=== PATIENT | female | born 1995 | race Caucasian/White ===

== ENCOUNTER 2023-11-12 13:10 | Emergency (ER) | payer OTHER, SELFPAY ==
--- NOTE | 2023-11-12 13:14 | ECG_ITS ---
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
[2023-11-12 13:16] VITALS: BP 151/112; PULSE 84; RESP 16; TEMP 36.6; O2SAT 99; BMI 46.6
--- NOTE | 2023-11-12 13:28 | ED_ITS ---
HPI - Burn/Smoke Inhalation General Chief complaint: Burn/Smoke Inhalation Stated complaint: ELECTRICUTED AT WORK Time Seen by Provider: 11/12/23 13:12 Source: patient Mode of arrival: walk-in History of Present Illness HPI Narrative: Patient is a 28-year-old female who presents to the emergency department after an electric shock to the right hand from an outlet at work. She states that she was using a metal sarah to try to unplug an outlet that was behind an object. She states the metal pried open the outlet. She sustained an electric shock to the right hand. She had no barber or mckeon. No fall to the ground or loss of consciousness. No chest pain, palpitations, shortness of breath. She has no focal medical complaints at this time. No concern for . Related Data Allergies Allergy/AdvReac Type Severity Reaction Status Date / Time amoxicillin [From Augmentin] Allergy Unknown Verified 11/12/23 13:21 clavulanic acid Allergy Unknown Verified 11/12/23 13:21 [From Augmentin] menthol [From Icy Hot] Allergy Unknown Verified 11/12/23 13:21 methyl salicylate Allergy Unknown Verified 11/12/23 13:21 [From Icy Hot] Review of Systems ROS Constitutional Denies: fever or chills Ears, nose, mouth, and throat Denies: throat pain Cardiovascular Denies: chest pain or palpitations Respiratory Denies: shortness of breath or cough Gastrointestinal Denies: nausea or vomiting Integumentary/Breast Denies: rash Exam Narrative Exam Narrative: Gen.: Awake, alert, in no distress Head: Normocephalic, atraumatic ENT: Moist mucous membranes Respiratory: No respiratory distress, lungs clear bilaterally Cardio: Regular rate and rhythm Extremities: Moves extremities equally, no injuries noted Psych: Normal mood and affect Neuro: No focal neuro deficit Skin: Warm, dry, intact; No barber or mckeon to the right arm or hand Constitutional Vital Signs, click to edit/add: Last Vital Signs Temp 98 F 11/12/23 13:16 Pulse 84 11/12/23 13:16 Resp 16 11/12/23 13:16 BP 151/112 H 11/12/23 13:16 Pulse Ox 99 11/12/23 13:16 Keegan-Lio/Rule Nines Burn ? Citation [email or web address] Course Vital Signs Vital signs: Vital Signs Temperature 98 F 11/12/23 13:16 Pulse Rate 84 11/12/23 13:16 Respiratory Rate 16 11/12/23 13:16 Blood Pressure 151/112 H 11/12/23 13:16 Pulse Oximetry 99 11/12/23 13:16 Temperature 98 F 11/12/23 13:16 Pulse Rate 84 11/12/23 13:16 Respiratory Rate 16 11/12/23 13:16 Blood Pressure 151/112 H 11/12/23 13:16 Pulse Oximetry 99 11/12/23 13:16 MDM - Burn/Smoke Inhalation MDM Narrative Medical decision making narrative: EKG performed to rule out dysrhythmia, patient with stable vital signs at discharge and no focal medical complaints. Follow-up occupational health, activity as tolerated with clearance for work. Return to the ER if symptoms change or worsen. Medical Records Attestation: I reviewed the patient's medical records. ECG Data Attestation: I personally reviewed and interpreted this ECG as follows: (Normal sinus rhythm at a rate of 79, no acute ST elevation or ectopy. EKG reviewed by attending physician) Discharge Plan Discharge Chief Complaint: Burn/Smoke Inhalation Clinical Impression: Electrocution Time of Disposition Decision: 13:30 Condition: Good Instructions: Return to Work Instructions (ED) Stand Alone Forms: Portal Instructions Referrals: [facility] [Outside] - 1 week
== END 2023-11-12 13:50 | disposition home or self-care (01) ==
PROVIDERS: Emergency Provider Emergency Medicine
DX: T75.4XXA Electrocution, initial encounter (principal); W86.8XXA Exposure to other electric current, initial encounter
CPT/HCPCS: 93005; 99283

== ENCOUNTER 2023-12-13 15:55 | Emergency (ER) | payer OTHER, SELFPAY ==
[2023-12-13 15:59] VITALS: BP 188/93; PULSE 65; RESP 18; TEMP 36.7; O2SAT 100; BMI 45.3
--- OUTSIDE RECORDS SUMMARY | 2023-12-13 16:02 | XMS_ITS | CCD ---
Author Name Unknown Address [address] [place] [address] [address] [place] [address] Organization [facility] Care Team Providers Care Development Editor Name Role Phone REQUEST, DR NONE LISTED Primary Care Unavailblake Zhang, DR REYES Admitting Unavailable JOSELYN Zhang, DR REYES Attending Unavailable JOSELYN Zhang, DR REYES Consulting Unavailable MIGUELINA ROJAS Consulting Unavailable LISSETTE ARNDT Consulting Unavailable Miller Mclean Attending Unavailable Miller Mclean Attending Unavailable Allergies Allergy Classification Reported Allergen(s) Allergy Type Date of Onset Reaction(s) Facility (2 sources) Amoxicillin / Clavulanate; Translations: [Augmentin] Drug Allergy 6 [facility] Repository (1 source) Icy Hot Drug allergy (disorder) 6 [facility] Repository (1 source) HYDROcodone-pota ssium guaiacolsulfonat e; Translations: [HYDROcodone-pot assium guaiacolsulfonat e] Propensity to adverse reactions (disorder) [facility] Repository (1 source) HYDROcodone PA Pediatric; Translations: [HYDROcodone PA Pediatric] Propensity to adverse reactions (disorder) [facility] Repository Problems Active Problems Problem Classification Problem Date Documented Da te Episodic/Chronic E Codes: Natural/environment (1 source) Other and unspecified overexertion or strenuous movements or postures, initial encounter; Translations: [OTH AND UNS OVREXRT/STRN MVMT/POS INT] Onset: 02-24-2023 Episodic Sprains and strains (1 source) Strain of muscle, fascia and tendon of lower back, initial encounter; Translations: [STRAIN MUSC FASC TENDON LW BACK INT] Onset: 02-24-2023 Episodic Substance-related disorders (1 source) Nicotine dependence, cigarettes, uncomplicated; Translations: [NICOTINE DEPEND CIGARETTES UNCOMP] Onset: 02-24-2023 Chronic Unclassified (2 sources) LOW BACK PAIN, UNSPECIFIED; Translations: [LOW BACK PAIN, UNSPECIFIED] Onset: 02-24-2023 Past or Other Problems Problem Classification Problem Date Documented Da te Episodic/Chronic Unclassified (1 source) LOW BACK PAIN, UNSPECIFIED; Translations: [LOW BACK PAIN, UNSPECIFIED] Onset: 02-20-2023 Results Test Name Value Interpretation Reference Range Facil ity XR LSPINE 2_3 VIEWSon 2022 XR LSPINE 2_3 VIEWS EXAM: XR LSPINE 2_3 VIEWS HISTORY: Low back pain COMPARISON: None. TECHNIQUE: 2 views FINDINGS: Maintenance of the normal lumbar lordosis.. Vertebral body heights and alignments exhibit no fracture or listhesis. Intervertebral disc space heights are unremarkable. Sacroiliac joints are normal IMPRESSION: Normal lumbar spine x-rays Electronically authenticated by: MIGUELINA ROJAS Date: 2023-02-20 22:35 Normal [facility] ER URINE PROFILEon 3 Bilirubin Ql (U) Negative Normal NEGATIVE [facility] Comment on above: Performed By: #### E RUR #### [facility] [address] [place] [address] Dr. Bruno Evans Clarity (U) CLEAR Normal CLEAR [facility] Comment on above: Performed By: #### E RUR #### [facility] [address] [place] [address] Dr. Bruno Evans Color (U) YELLOW Normal YELLOW [facility] Comment on above: Performed By: #### E RUR #### [facility] [address] [place] [address] Dr. Bruno POOL A micrscopic examination will be performed if indicated. Normal [facility] Comment on above: Performed By: #### E RUR #### [facility] [address] [place] [address] Dr. Bruno Evans Glucose Ql (U) Negative Normal NEGATIVE [facility] Comment on above: Performed By: #### E RUR #### [facility] [address] [place] [address] Dr. Bruno Evans Hemoglobin Ql (U) Negative Normal NEGATIVE [facility] Comment on above: Performed By: #### E RUR #### [facility] [address] [address] [address] Bruno Evans Ketones Ql (U) Negative Normal NEGATIVE [facility] Comment on above: Performed By: #### E RUR #### [facility] [address] [place] [address] Dr. Bruno Evans LEUKOCYTES Negative Normal NEGATIVE [facility] Comment on above: Performed By: #### E RUR #### [facility] [address] [place] [address] Dr. Bruno Evans Nitrite Ql (U) Negative Normal NEGATIVE [facility] Comment on above: Performed By: #### E RUR #### [facility] [address] [place] [address] Dr. Bruno Evans pH (U) 5.5 [pH] Normal 5-9 [facility] Comment on above: Performed By: #### E RUR #### [facility] [address] [place] [address] Dr. Bruno Evans SPEC GRAVITY >=1.030 Abnormal 1.005-<=1.025 [facility] Comment on above: Performed By: #### E RUR #### [facility] [address] [place] [address] Dr. Bruno Evans UA PROTEIN TRACE Normal NEGATIVE/ TRACE [facility] Comment on above: Performed By: #### E RUR #### [facility] [address] [place] [address] Dr. Bruno Evans UR MICRO IND NOT INDICATED Normal [facility] Comment on above: Performed By: #### E RUR #### [facility] [address] [place] [address] Dr. Bruno Evans Urobilinogen Qn (U) 2.0 {Arlet'U}/dL Abnormal 0.2 - 1. 0 [facility] Comment on above: Performed By: #### E RUR #### [facility] [address] [place] [address] Dr. Bruno Evans Encounters Encounter Date Encounter Type Care Provider Facility Start: 12-16-2023 ambulatory Miller Mclean Facility : [facility] Start: 11-26-2023 End: 11-27-2023 ambulatory Miller Mclean Facility:[facility] Shauna moreland Start: 02-20-2023 End: 02-21-[address] NONE LISTED REQUEST Facility: Payers Date Payer Category Payer Unknown [id number] 1995 Unknown [id number] 1995 Unknown [id number] 1957 Unknown [id number] Summary Purpose Family History No Family History Records FoundNo Family History Records Found Advance Directives No Advanced Directives Records FoundNo Advanced Directives Records Found Additional Source Comments INFORMATION SOURCE (unrecogn ized section and content) DATE CREATED AUTHOR 02/25/2023 [facility] DATE CREATED AUTHOR AUTHOR'S ORGANIZ ATION 12/10/2023 [facility] FOR RECORDS PERTAINING TO PATIENTS WHO ARE OR HAVE BEEN ENROLLED IN A CHEMICAL DEPENDENCY/SUBSTANCEABUSE PROGRAM, SOME INFORMATION MAY BE OMITTED. This clinical summary was aggregated from multiple sources. Caution should be exercised in using it in the provision of clinical care. This summary normalizes information from multiple sources, and as a consequence, information in this document may materially change the coding, format and clinical context of patient data. In addition, data may be omitted in some cases. CLINICAL DECISIONS SHOULD BE BASED ON THE PRIMARY CLINICAL RECORDS. [employer] [facility]. provides no warranty or guarantee of the accuracy or completeness of information in this document.
--- NOTE | 2023-12-13 16:10 | ED_ITS ---
HPI - Dental/Oral General Chief complaint: Dental/Oral Stated complaint: MOUTH PAIN Time Seen by Provider: 12/13/23 15:57 Source: patient Mode of arrival: walk-in Limitations: no limitations History of Present Illness HPI Narrative: Pt is a 28-year-old female. Dental pain 10/10 right lower rear molar. And radiates to the ear.Denies any nausea or vomiting. Patient states she is not allergic to penicillin. She has an appointment tomorrow for regular dental cleaning. Per Pt, Dentist has suggested the patient get a root canal, patient is hoping for extraction. She notes minimal swelling to the mandibular poncho on.Patient speaking in clear sentences appears nontoxic in no acute distress. Denies any discharge or drainage, tooth with evidence of prior dental caries and chronic fracture MD Complaint: Reports tooth pain Associated symptoms: gum swelling and ear pain Treatment prior to arrival: oral analgesic Related Data Home Medications Medication Instructions Recorded Confirmed ibuprofen 800 mg tablet 800 mg PO TID 12/13/23 12/13/23 Previous Rx's Medication Instructions Recorded ibuprofen 600 mg tablet 600 mg PO TID PRN pain #30 tabs 12/13/23 penicillin V potassium 500 mg 500 mg PO TID #30 tabs 12/13/23 tablet Allergies Allergy/AdvReac Type Severity Reaction Status Date / Time amoxicillin [From Augmentin] Allergy Unknown Verified 11/12/23 13:21 clavulanic acid Allergy Unknown Verified 11/12/23 13:21 [From Augmentin] menthol [From Icy Hot] Allergy Unknown Verified 11/12/23 13:21 methyl salicylate Allergy Unknown Verified 11/12/23 13:21 [From Icy Hot] Review of Systems ROS Constitutional Denies: fever or chills Eyes Denies: change in vision or blurry vision Ears, nose, mouth, and throat Denies: throat pain or neck pain Cardiovascular Denies: chest pain or palpitations Respiratory Denies: shortness of breath or cough Gastrointestinal Denies: abdominal pain or nausea Musculoskeletal Denies: back pain Integumentary/Breast Denies: rash or itching Neurological Denies: headache Psychiatric Denies: anxiety or mood swings Allergic/Immunologic Denies: hives PFSH PFSH Social History Smoking status: Current every day smoker Exam Narrative Exam Narrative: Nurses notes reviewed and patient is noted to be non-hypoxic. General: The patient is comfortable, alert and oriented x3, well appearing, non toxic in no apparent distress. Head: Atraumatic and normocephalic. Eyes: Normal conjunctiva, no exudates. ENT: ear Normal to inspection, no auricle or Tragal tenderness.TM unremarkable,The oropharynx is normal. No pharyngeal erythema, uvular edema, tonsillar exudates, asymmetry or trismus. Uvula is midline. Mouth is normal to inspection With the exception of a pain on percussion of Right lower rear molar. and evidence of dental caries,Chronic fracture. . There is no evidence of facial asymmetry or abscess formation. Floor of the mouth is soft. mild tenderness in the submandibular space but no mass. No tongue elevation or deviation. The patient has no evidence of periapical abscess, gingivitis, ANUG or other acute pathology. Airway is patent. Neck: The neck demonstrates normal range of motion. No meningeals signs are present. No stridor. No masses or lymphandenopathy noted. Respiratory: No acute distress, lungs are clear to auscultation, no wheezing, rhonchi, or rales noted. No stridor or retractions are noted. Cardiovascular: Regular rate and rhythm Skin: The skin exam shows no evidence of rashes Neuro: Alert and oriented x4, normal speech Lymphatic: No cervical lymphadenopathy Constitutional Vital Signs, click to edit/add: Last Vital Signs Temp 98.1 F 12/13/23 15:59 Pulse 65 12/13/23 15:59 Resp 18 12/13/23 15:59 BP 188/93 H 12/13/23 15:59 Pulse Ox 100 12/13/23 15:59 O2 Del Method Room Air 12/13/23 15:59 Course Vital Signs Vital signs: Vital Signs Temperature 98.1 F 12/13/23 15:59 Pulse Rate 65 12/13/23 15:59 Respiratory Rate 18 12/13/23 15:59 Blood Pressure 188/93 H 12/13/23 15:59 Pulse Oximetry 100 12/13/23 15:59 Oxygen Delivery Method Room Air 12/13/23 15:59 Temperature 98.1 F 12/13/23 15:59 Pulse Rate 65 12/13/23 15:59 Respiratory Rate 18 12/13/23 15:59 Blood Pressure 188/93 H 12/13/23 15:59 Pulse Oximetry 100 12/13/23 15:59 Oxygen Delivery Method Room Air 12/13/23 15:59 MDM - Dental/Oral MDM Narrative Medical decision making narrative: mounting dental pain throughout the weekend, taking Motrin without relief. Sensitivity to air and liquid. Patient sees dentist tomorrow, she is hoping for dental extraction. She is here for the acute pain she is experiencing external exam unremarkable, no mastoid or tragal tenderness. Tenderness to the right lower rear molar noted and patient consenting to a supraperiosteal block... pt Started on penicillin, patient states she is not allergic. Her kids have a penicillin allergy. Patient states she will continue with Motrin, Tylenol and keep appointment with dentist tomorrow. Patient was thankful.And room temperature foods, soft and room temperature liquids. Patient consenting to injection with risks and benefits discussed, to mL of 0.5% bupivacaine was injected in the supraperiosteal block fashion to the right lower rear molar. Patient noted Adequate anesthesia following this injection. Neurovascularly intact The patient is to followup with DDS tomorrow. primary care physician in next 2-3 days or to return to the emergency department should any of the signs or symptoms worsen or new symptoms develop. Patient had questions answered. The patient agrees with the following Diagnosis and Treatment plan and the patient will be discharged home. Discharge Plan Discharge Chief Complaint: Dental/Oral Clinical Impression: Dental caries, Toothache Patient Disposition: Home, Self-Care Time of Disposition Decision: 16:11 Condition: Good Prescriptions / Home Meds: New penicillin V potassium 500 mg tablet 500 mg PO TID Qty: 30 0RF ibuprofen 600 mg tablet 600 mg PO TID PRN (Reason: pain) Qty: 30 0RF No Action ibuprofen 800 mg tablet 800 mg PO TID Instructions: Toothache (ED) Additional Instructions: Keep appt for tomorrow with DDS Stand Alone Forms: Portal Instructions Referrals: Physician,Non-Staff, MD [Primary Care Provider] - 1 week
== END 2023-12-13 16:39 | disposition home or self-care (01) ==
PROVIDERS: Emergency Provider Emergency Medicine
DX: K02.9 Dental caries, unspecified (principal); K08.89 Other specified disorders of teeth and supporting structures; F17.210 Nicotine dependence, cigarettes, uncomplicated
CPT/HCPCS: 99283

== ENCOUNTER 2025-07-28 16:30 | Emergency (ER) | payer OTHER, SELFPAY ==
[2025-07-28 16:35] VITALS: BP 140/98; PULSE 96; TEMP 37.4; O2SAT 96; BMI 41.6
--- NOTE | 2025-07-28 16:54 | XR_ITS ---
The [address] [address] Patient Name: HEATH SMITH MRN: [id number] date: 1995 Sex: F Assigned Patient Location: ED.MAIN Current Patient Location: ED.MAIN Accession/Order Number: [id number] Exam Date: 07/28/2025 17:03 Report Date: 07/28/2025 17:23 At the request of: FLYNN QUIGLEY MD Procedure: XR foot RT min 3V RIGHT FOOT - 3 views CLINICAL HISTORY: pain COMPARISON: None FINDINGS: No fracture-dislocation. There is mild soft tissue swelling along the forefoot of uncertain clinical significance. No radio opaque foreign body. No soft tissue gas. XR/XR foot RT min 3V IMPRESSION: NO ACUTE OSSEOUS FINDINGS. Impression dictated by: Bang Toney M.D. 07/28/2025 5:23 PM Dictation Location: [place] [address] Electronically authenticated by: [id number] Date: 07/28/2025 17:23
--- OUTSIDE RECORDS SUMMARY | 2025-07-28 17:07 | XMS_ITS | CCD ---
Author Organization [facility] [place] Inform ion Partnership [facility] Care Team Providers Care Autographer Name Role Phone REQUEST, DR NONE LISTED Primary Care Unavaila isra ALVES ., DR REYES Admitting Unavailable JOSELYN ., DR REYES Attending Unavailable JOSELYN ., DR REYES Consulting Unavailable MIGUELINA ROJAS Consulting Unavailable LISSETTE ARNDT Consulting Unavailable Jj FOFANA Primary Care Physician ALIA RODRIGUEZ Attending Unavailable ALIA RODRIGUEZ Attending Unavailable Allergies Allergy Classification Reported Allergen(s) Allergy Type Date of Onset Reaction(s) Facility (2 sources) Amoxicillin / Clavulanate; Translations: [Augmentin] Drug Allergy 04-24-20 16 [facility] Repository (1 source) Icy Hot Drug allergy (disorder) 04-24-20 16 [facility] Repository (2 sources) Amoxicillin / Clavulanate; Translations: [amoxicillin-clavula mitchell] Drug Allergy Hives [facility] (3 sources) guaiacolsulfonate / HYDROcodone; Translations: [hydrocodone-potassi um guaiacolsulfonate] Drug Allergy Vomits after eating [facility] (1 source) HYDROcodone PA Pediatric; Translations: [HYDROcodone PA Pediatric] Propensity to adverse reactions (disorder) [facility] Repository Medications Current Medications Medication Drug Class(es) Dates Sig (Normalized) Sig (Original) ibuprofen 800 mg oral tablet (2 sources) Nonsteroidal Anti-inflammatory Drug Start: 12-16-2023 ibuprofen 800 mg Tab 800 mg = 1 tab(s), Oral, q6hr, may use every 406 hours as needed, Refills(s) 0 Start Date: 12/16/23 Status: Ordered Problems Active Problems Problem Classification Problem Date Documented Date Episodic/Chronic E Codes: Natural/environment (1 source) Other and unspecified overexertion or strenuous movements or postures, initial encounter; Translations: [OTH AND UNS OVREXRT/STRN MVMT/POS INT] Onset: 02-24-2023 Episodic Mood disorders (2 sources) Depressive disorder 09-14-2016 Chronic Other nutritional; endocrine; and metabolic disorders (2 sources) Calorie overload 12-16-2023 Chronic Other upper respiratory disease (2 sources) Pain in throat 12-16-2023 Episodic Residual codes; unclassified (2 sources) Obstructive sleep apnea syndrome 12-16-2023 Chronic Residual codes; unclassified (2 sources) Sleep apnea 09-14-2016 Chronic Sprains and strains (1 source) Strain of muscle, fascia and tendon of lower back, initial encounter; Translations: [STRAIN MUSC FASC TENDON LW BACK INT] Onset: 02-24-2023 Episodic Substance-related disorders (3 sources) Nicotine dependence, cigarettes, uncomplicated; Translations: [Smoker] Onset: 02-24-2023 09-14-2016 Chronic Comment on above: Added secondary to d ocumentation in Social History. Suicide and intentional self-inflicted injury (2 sources) H/O: attempted suicide 09-14-2016 Episodic Unclassified (2 sources) LOW BACK PAIN, UNSPECIFIED; Translations: [LOW BACK PAIN, UNSPECIFIED] Onset: 02-24-2023 Unclassified (2 sources) Patient encounter status 12-16-2023 Past or Other Problems Problem Classification Problem Date Documented Da te Episodic/Chronic Unclassified (1 source) LOW BACK PAIN, UNSPECIFIED; Translations: [LOW BACK PAIN, UNSPECIFIED] Onset: 02-20-2023 Unclassified (2 sources) Bipolar (qualifier value) 09-14-2016 Results Test Name Value Interpretation Reference Range Facility Ambulatory Visit Summaryon 0 06-13-2025 Ambulatory Visit Summary Ambulatory Visit Summary HEATH SMITH :1995 Visit Date:06/13/2025 Ambulatory Visit Instructions Your Diagnosis Depression Morbid obesity with BMI of 50.0-59.9, adult BMI 50.0-59.9, adult Vapes nicotine containing substance Your Care Team Attending Physician - ALIA RODRIGUEZ CNP Primary Care Physician - ALIA RODRIGUEZ CNP This Is Your Medications List fluoxetine (FLUoxetine 20 mg Cap) Procedures Performed section. Discharge Vitals Temperature (Oral) 36.8 ???C Heart Rate (Peripheral) 64 Respiratory Rate 18 Blood Pressure 128/84 Height 165 cm Height 65 in Weight 143 kg Weight 315.261 lb BMI 52.53 What to do next Scheduled Follow-Up Appointments Thursday 1:20 PM EDT With: ALIA RODRIGUEZ CNP Where: [address] [id number]- Medications What When Instructions Unchanged fluoxetine (FLUoxetine 20 mg Cap) TAKE 1 CAPSULE BY MOUTH EVERY DAY AT THE SAME TIME Allergies Augmentin (Hives) HYDROcodone-potassium guaiacolsulfonate (Vomits after eating) Problems Ongoing - Any problem that you are currently receiving treatment for. BMI 50.0-59.9, adult Excessive dietary caloric intake Morbid obesity with BMI of 50.0-59.9, adult NEYDA (obstructive sleep apnea) Physical exam Throat pain Vapes nicotine containing substance Historical - Any problem that you are no longer receiving treatment for. Bipolar Depression H/O: attempted suicide Sleep apnea Patient Survey You may receive a survey via text or e-mail asking about your office visit. Please share your experience with us by completing your survey. We appreciate your feedback and thank you for choosing us for your care. Patient Portal You may access all of your results and other medical record information on our secure patient portal. If you are not signed up for this yet, please contact Health Information Management at [phone] to get signed up today. Language Information Language assistance services are available as needed. Normal [facility] Family Medicine Office/Clini c Noteon 06-13-2025 Family Medicine Office/Clinic Note Family Medicine Office/Clinic Note Chief Complaint Discuss Depression referral & medication The patient presents with concerns regarding anxiety and depression management. HPI Staff Former Dr Mclean pt. Presenting today to discuss possible depression medication. Follow up for Mental Status: Medication adherence- Yes, takes medication as prescribed Medication refill needed: _ Suicidal thoughts-Not at this time Most recent ANDREINA: 12 Most recent PHQ: 14 Has been taking an old script of fluoxetine 20mg qd. Does help somewhat. Notes it is . Has seen counselor several yrs ago. Just got out of 7yr relationship. History of Present Illness 29-year-old female presenting with anxiety and depression management. She has been experiencing anxiety and depression, for which she previously took fluoxetine 20 mg, but reports it may not be effective due to expiration. She has a history of suicidal ideation and self-harm, including overdosing and cutting, but denies current intent or plan. The patient has tried Zoloft in the past but cannot recall its effectiveness compared to fluoxetine. She has not tried other medications such as Lexapro or escitalopram. The patient has three children and reports that her mental health issues have been exacerbated by a recent relationship breakup. She is seeking counseling at [facility] in [place]. Review of Systems PHQ Score Initial Depression Screen Score: 2 SCORE - Psychiatric: Reports anxiety and depression, suicidal ideation without current intent or plan. Denies current suicidal intent or plan. Physical Exam Vitals & Measurements T: 36.8 ???C(Oral) HR: 64(Peripheral) RR: 18 BP: 128/84 SpO2: 99% HT: 165 cm HT: 65 in WT: 315.261 lb WT: 143 kg BMI: 52.53 General: alert, no acute distress Cardiovascular: regular rate and rhythm, normal peripheral perfusion Respiratory: Lungs CTA, respirations non labored Extremities: no deformity, no trauma Neurological: oriented x 4, LOC appropriate for age speech normal Assessment/Plan 1. Depression (F32.A: Depression, unspecified) - Completed and reviewed the PHQ-9 score of 14 and the ANDREINA-7 score of 12 - Completed the [place]val- Suicide Severity Rating Scale and determined to be at low risk for suicide - Switch from fluoxetine to escitalopram 20 mg, with follow-up in four weeks to assess effectiveness. - Referral to [facility] for therapy. - Discussed potential side effects of escitalopram, including nausea and drowsiness, and advised to take medication at night if drowsiness occurs. - Information on suicide hotline provided to patient - Start escitalopram 10 mg one tablet po daily - F/U in 4 weeks Ordered: escitalopram, 10 mg = 1 tab(s), Oral, Daily, # 30 tab(s), Refills(s) 1, Pharmacy: [facility]/pharmacy #[id number], 165, cm, 06/13/25 14:13:00 EDT, Height/Length Dosing, 143, kg, 06/13/25 14:13:00 EDT, Weight Dosing 2. Morbid obesity with BMI of 50.0-59.9, adult (E66.01: Morbid (severe) obesity due to excess calories) The standard range for ages 18 and older is >=18.5 and < 25 kg/m2. Your BMI today was above this range, this falls in the overweight to obese category and there are medical benefits to weight loss. We can offer counselling, referral, and/or medical support in addressing this problem. Your BMI and weight management will be followed at subsequent visits. Ordered: escitalopram, 10 mg = 1 tab(s), Oral, Daily, # 30 tab(s), Refills(s) 1, Pharmacy: [id number], 165, cm, 06/13/25 14:13:00 EDT, Height/Length Dosing, 143, kg, 06/13/25 14:13:00 EDT, Weight Dosing 3. BMI 50.0-59.9, adult (Z68.43: Body mass index [BMI] 50.0-59.9, adult) BMI 52.53 Ordered: escitalopram, 10 mg = 1 tab(s), Oral, Daily, # 30 tab(s), Refills(s) 1, Pharmacy: [id number], 165, cm, 06/13/25 14:13:00 EDT, Height/Length Dosing, 143, kg, 06/13/25 14:13:00 EDT, Weight Dosing 4. Vapes nicotine containing substance (Z72.0: Tobacco use) No intervention at today's visit Ordered: escitalopram, 10 mg = 1 tab(s), Oral, Daily, # 30 tab(s), Refills(s) 1, Pharmacy: [id number], 165, cm, 06/13/25 14:13:00 EDT, Height/Length Dosing, 143, kg, 06/13/25 14:13:00 EDT, Weight Dosing Follow-up With When Contact Information ALIA RODRIGUEZ CNP, FAM Within [address] [place] [id number] Business (1) Additional Instructions: Depression Patient Education Managing Depression, Adult Problem List/Past Medical History Ongoing BMI 50.0-59.9, adult Excessive dietary caloric intake Morbid obesity with BMI of 50.0-59.9, adult NEYDA (obstructive sleep apnea) Physical exam Throat pain Vapes nicotine containing substance Historical Bipolar Depression H/O: attempted suicide Sleep apnea Procedure/Surgical History section. Medications Lexapro 10 mg Tab, 10 mg= 1 tab(s), Oral, Daily, 1 refills Allergies Augmentin (Hives) HYDROcodone-potass (more content not included)... Normal [facility] Comment on above: Result Comment: Elec tronically Signed By: ALIA RODRIGUEZ CNP\.que\Date and Time Signed: 06/13/25 15:04 EDT CHEMISTRYOrdered By: SYSTEM SYSTEM on 12-16-2023 Albumin [Mass/Vol] 4.5 g/dL Normal 3.3 - 5.0 gm/dL [facility] Albumin/Globulin [Mass ratio] 1.6 {ratio} Normal 1.1 - 2.2 [facility] Alk Phos 63 [iU]/d Normal 21 - 98 Int._Unit/L [facility] ALT 30 [iU]/d Normal 6 - 46 Int._Unit/L [facility] Anion gap [Moles/Vol] 12 mmol/L Normal 6 - 16 mEq/L R emisol Chem AST 29 [iU]/d Normal 5 - 43 Int._Unit/L [facility] Bili Total 0.3 mg/dL Normal 0.0 - 1.1 mg/dL [facility] Calcium [Mass/Vol] 9.1 mg/dL Normal 8.9 - 11. 1 mg/dL [facility] Chloride [Moles/Vol] 103 mmol/L Normal 101 - 1 11 mmol/L [facility] Cholesterol [Mass/Vol] 198 mg/dL Normal 120 - 200 mg/dL [facility] Cholesterol in HDL [Mass/Vol] 71 mg/dL Invalid Interpretation Code [facility] Comment on above: Result Comment: '>= 60 LOW RISK' '<= 40 HIGH RISK' Cholesterol in LDL [Mass/Vol] 110 mg/dL Normal <=129mg/dL [facility] Cholesterol in VLDL [Mass/Vol] 16 mg/dL Normal 7 - 40 mg/dL [facility] CO2 [Moles/Vol] 26 mmol/L Normal 21 - 31 mmol/L [facility] Creatinine [Mass/Vol] 0.6 mg/dL Normal 0.5 - 1.3 mg/dL [facility] eGFR 127 mL/min/1.73 m2 Normal >=59mL/mi n/1. 73 m2 [facility] Globulin (S) [Mass/Vol] 2.9 g/dL Normal 1.4 - 4.0 gm/dL [facility] Glucose [Mass/Vol] 95 mg/dL Normal 55 - 199 mg/dL [facility] Potassium [Moles/Vol] 3.8 mmol/L Normal 3.5 - 5.3 mmol/L [facility] Protein [Mass/Vol] 7.4 g/dL Normal 6.0 - 7.8 gm/dL [facility] Sodium [Moles/Vol] 137 mmol/L Normal 135 - 145 mmol/L [facility] Triglyceride [Mass/Vol] 81 mg/dL Normal <=149mg/dL [facility] Urea nitrogen [Mass/Vol] 8 mg/dL Normal 5 - 21 mg/dL [facility] Urea nitrogen/Creatinine [Mass ratio] 13 mg/mg Normal 10 - 20 [facility] HEMATOLOGYOrdered By: SYSTEM SYSTEM on 12-16-2023 Basophil Absolute 0.0 E9/L Normal 0.0 - 0.2 E9/L Remisol Heme Basophils/100 WBC (Bld) 0.6 % Normal 0.0 - 2.0 % [facility]e Eos Absolute 0.2 E9/L Normal 0.0 - 0.5 E9/L [facility] Heme Eosinophils/100 WBC (Bld) 2.0 % Normal 0.0 - 8.0 % [facility]e Erythrocyte distribution width (RBC) [Ratio] 13.0 % Normal 10.9 - 14.2 % [facility] Hematocrit (Bld) [Volume fraction] 40.0 % Normal 34.0 - 46.0 % [facility]e Hemoglobin (Bld) [Mass/Vol] 13.1 g/dL Normal 12.0 - 16.0 gm/dL [facility] Lymph Absolute 2.6 E9/L Normal 1.0 - 4.0 E9/L [facility]e Lymphocytes/100 WBC (Bld) 32.4 % Normal 14.0 - 50.0 % Rem[facility] Heme MCH (RBC) [Entitic mass] 26.5 pg Low 27.0 - 34.0 pg Remisol Heme MCHC (RBC) [Mass/Vol] 32.8 g/dL Normal 31.4 - 36.0 gm/dL Rem[facility] Heme MCV (RBC) [Entitic vol] 80.8 fL Normal 80.0 - 100.0 fL Remisol Heme [place] Absolute 0.6 E9/L Normal 0.2 - 1.0 E9/L Rem[facility] Heme Monocytes/100 WBC (Bld) 7.8 % Normal 4.0 - 14.0 % [facility]e Neutro Absolute 4.5 E9/L Normal 2.0 - 7.5 E9/L Rem[facility] Heme Neutro Auto 57.2 % Normal 36.0 - 75.0 % Remisol He me Platelet 267.0 E9/L Normal 150.0 - 500.0 E9/L Rem[facility] Heme Platelet mean volume (Bld) [Entitic vol] 8.3 fL Normal 6.4 - 10.8 fL [facility] Heme RBC 5.0 E12/L Normal 4.3 - 5.9 E12/L [facility] WBC 7.9 E9/L Normal 4.0 - 11.0 E9/L [facility] Heme XR LSPINE 2_3 VIEWSon 2022 XR LSPINE [...] MIGUELINA ROJAS Date: 2023-02-20 22:35 Normal [facility] ER URINE PROFILEon 3 Bilirubin Ql (U) Negative Normal NEGATIVE [facility] Comment on above: Performed By: #### E RUR #### [facility] [address] [address] [address] Bruno Evans Clarity (U) CLEAR Normal CLEAR [facility] Comment on above: Performed By: #### E RUR #### [facility] [address] [address] [address] Bruno Evans Color (U) YELLOW Normal YELLOW [facility] Comment on above: Performed By: #### E RUR #### [facility] [address] [place] [address] Dr. Bruno POOL A micrscopic examination will be performed if indicated. Normal [facility] Comment on above: Performed By: #### E RUR #### [facility] [address] [address] [address] Bruno Evans Glucose Ql (U) Negative Normal NEGATIVE [facility] Comment on above: Performed By: #### E RUR #### [facility] [address] [address] [address] Bruno Evans Hemoglobin Ql (U) Negative [facility] Comment on above: Performed By: #### E RUR #### [facility] [address] [place] [address] Dr. Bruno Evans Ketones Ql (U) Negative Normal NEGATIVE [facility] Comment on above: Performed By: #### E RUR #### [facility] [address] [place] [address] Dr. Bruno Evans LEUKOCYTES Negative Normal NEGATIVE [facility] Comment on above: Performed By: #### E RUR #### [facility] [address] [place] [address] Dr. Bruno Evans Nitrite Ql (U) Negative Normal NEGATIVE [facility] Comment on above: Performed By: #### E RUR #### [facility] [address] [place] [address] Dr. Bruno Evans pH (U) 5.5 [pH] Normal 5-9 [facility] Comment on above: Performed By: #### E RUR #### [facility] [address] [place] [address] Dr. Bruno Evans SPEC GRAVITY >=1.030 Abnormal 1.005-<=1.025 [facility] Comment on above: Performed By: #### E RUR #### [facility] [address] [place] [address] Dr. Bruno Evans UA PROTEIN TRACE Normal NEGATIVE/ TRACE [facility] Comment on above: Performed By: #### E RUR #### [facility] [address] [address] [address] Bruno Evans UR MICRO IND NOT INDICATED Normal The [facility] Comment on above: Performed By: #### E RUR #### [facility] [address] [address] [address] Bruno Evans Urobilinogen Qn (U) 2.0 {Arlet'U}/dL Abnormal 0.2 - 1. 0 [facility] Comment on above: Performed By: #### E RUR #### [facility] [address] [address] [address] Bruno Evans Encounters Encounter Date Encounter Type Care Provider Facility Start: 07-11-2025 End: 07-11-2025 ambulatory [facility] Facility:[facility] Start: 06-13-2025 End: 06-13-2025 ambulatory [facility] Facility:[facility] Start: 01-27-2024 End: 01-28-2024 Pre-admission assessment Ame [facility] Start: 12-16-2023 End: 12-16-2023 Lab Drop off Miller Mclean [facility] Start: 02-20-2023 End: 02-21-[address] NONE LISTED REQUEST Facility: Procedures Date Procedure Procedure Detail Performing Clinician section Miller Mclean Comment on above: 2018 twins and one 2 020 Payers Date Payer Category Payer Unknown [id number] 1995 Unknown [id number] 1995 Unknown [id number] 1957 Unknown [id number] Social History Date Type Detail Facility Start: 12-16-2023 Tobacco smoking status Ex-smoker (kajal chawla) [facility] Sex Assigned At Female [facility] Clinical Note 06-13-2025 Note Date & Type Note Facility 06-13-2025 Note Patient Education Mental and Behavioral Health Managing Depression, Adult Depression is a mental health condition that affects your thoughts, feelings, and actions. Being diagnosed with depression can bring you relief if you did not know why you have felt or behaved a certain way. It could also leave you feeling overwhelmed. Finding ways to manage your symptoms can help you feel more positive about your future. How to manage lifestyle changes Being depressed is difficult. Depression can increase the level of everyday stress. Stress can make depression symptoms worse. You may believe your symptoms cannot be managed or will never improve. However, there are many things you can try to help manage your symptoms. There is hope. Managing stress Stress is your body's reaction to life changes and events, both good and bad. Stress can add to your feelings of depression. Learning to manage your stress can help lessen your feelings of depression. Try some of the following approaches to reducing your stress (stress reduction techniques): ??? Listen to music that you enjoy and that inspires you. ??? Try using a meditation alvarez or take a meditation class. ??? Develop a practice that helps you connect with your spiritual self. Walk in nature, pray, or go to a place of lutheran. ??? Practice deep breathing. To do this, inhale slowly through your nose. Pause at the top of your inhale for a few seconds and then exhale slowly, letting yourself relax. Repeat this three or four times. ??? Practice yoga to help relax and work your muscles. Choose a stress reduction technique that works for you. These techniques take time and practice to develop. Set aside 5?15 minutes a day to do them. Therapists can offer training in these techniques. Do these things to help manage stress: ??? Keep a journal. ??? Know your limits. Set healthy boundaries for yourself and others, such as saying no when you think something is too much. ??? Pay attention to how you react to certain situations. You may not be able to control everything, but you can change your reaction. ??? Add humor to your life by watching funny movies or shows. ??? Make time for activities that you enjoy and that relax you. ??? Spend less time using electronics, especially at night before bed. The light from screens can make your brain think it is time to get up rather than go to bed. Medicines Medicines, such as antidepressants, are often a part of treatment for depression. ??? Talk with your pharmacist or health care provider about all the medicines, supplements, and herbal products that you take, their possible side effects, and what medicines and other products are safe to take together. ??? Make sure to report any side effects you may have to your health care provider. Relationships Your health care provider may suggest family therapy, couples therapy, or individual therapy as part of your treatment. How to recognize changes Everyone responds differently to treatment for depression. As you recover from depression, you may start to: ??? Have more interest in doing activities. ??? Feel more hopeful. ??? Have more energy. ??? Eat a more regular amount of food. ??? Have better mental focus. It is important to recognize if your depression is not getting better or is getting worse. The symptoms you had in the beginning may return, such as: ??? Feeling tired. ??? Eating too much or too little. ??? Sleeping too much or too little. ??? Feeling restless, agitated, or hopeless. ??? Trouble focusing or making decisions. ??? Having unexplained aches and pains. ??? Feeling irritable, angry, or aggressive. If you or your family members notice these symptoms coming back, let your health care provider know right away. Follow these instructions at home: Activity ??? Try to get some form of exercise each day, such as walking. ??? Try yoga, mindfulness, or other stress reduction techniques. ??? Participate in group activities if you are able. Lifestyle ??? Get enough sleep. ??? Cut down on or stop using caffeine, tobacco, alcohol, and any other harmful substances. ??? Eat a healthy diet that includes plenty of vegetables, fruits, whole grains, low-fat dairy products, and lean protein. Limit foods that are high in solid fats, added sugar, or salt (sodium). General instructions ??? Take [id number] and prescription medicines only as told by your health care provider. ??? Keep all follow-up visits. It is important for your health care provider to check on your mood, behavior, and medicines. Your health care provider may need to make changes to your treatment. Where to find support Talking to others Friends and family members can be sources of support and guidance. Talk to trusted friends or family members about your condition. Explain your symptoms and let them know that you are working with a health care (more content not included)... [facility] Evaluation + Plan note Note Date & Type Note Facility Evaluation + Plan note Future Appointments Appointment Date:01/14/2024 11:15:00 AM Scheduled Provider:Miller Mclean MD Location:[facility] ([facility] Appointment Type: [facility] Hospital course Narrative Note Date & Type Note [facility] Hospital course Narrative No data available for this section [facility] Hospital Discharge instructions Note Date & Type Note [facility] Hospital Discharge instructions No data available for this section [facility] Progress note Note Date & Type Note Facility Progress note No data available for this section [facility] Summary Purpose Family History No Family History Records Found No data available for this section No data available for this section No Family History Records Found Advance Directives No Advanced Directives Records FoundNo Advanced Directives Records Found Additional Source Comments INFORMATION SOURCE (unrecogn ized section and content) DATE CREATED AUTHOR 02/25/2023 [facility] DATE CREATED AUTHOR AUTHOR'S ORGANIZ ATION 07/12/2025 [facility] Patient Care team informatio n (unrecognized section and content) Personnel Name: Jj FOFANA DO, FAAFP Address: Address: [address] [place] [address] Personnel Name: Jj FOFANA DO, FAAFP Address: Address: [address] [place] [address] FOR RECORDS PERTAINING TO PATIENTS WHO ARE [...] BE BASED ON THE PRIMARY CLINICAL RECORDS. [facility] [employer] [facility]. provides no warranty or guarantee of the accuracy or completeness of information in this document.
--- NOTE | 2025-07-28 17:30 | ED_ITS ---
HPI - Extremity Problem General Chief complaint: Extremity Problem, Nontraumatic Stated complaint: HURT HER RIGHT FOOT Time Seen by Provider: 07/28/25 17:17 Source: patient Mode of arrival: walk-in History of Present Illness HPI Narrative: 30-year-old female presents with right foot pain that started without injury. Pain is located in the medial arch and eikrr-kw-kxmtau metatarsal region. Pain worsens with weight bearing. No redness, swelling, numbness, tingling, or systemic symptoms. No interventions tried at home. 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 Related Data Home Medications ?Medication ?Instructions ?Recorded ?Confirmed No Known Home Medications 07/28/2507/04 Allergies Allergy/AdvReac Type Severity Reaction Status Date / Time amoxicillin (From Augmentin) Allergy Unknown Verified 11/12/23 13:21 clavulanic acid (From Allergy Unknown Verified 11/12/23 13:21 Augmentin) menthol (From Icy Hot) Allergy Unknown Verified 11/12/23 13:21 methyl salicylate (From Icy Allergy Unknown Verified 11/12/23 13:21 Hot) PFSH [facility] Social History Smoking status: Current every day smoker Little interest or pleasure in doing things: not at all Feeling down, depressed, or hopeless: not at all Exam Narrative Exam Narrative: General: Alert, oriented, nontoxic Right Foot: Tenderness over medial arch and 1st?2nd metatarsal region. No swelling, erythema, or warmth. No open wounds. no pain in the calf, knee or hip. Neurovascular: Intact sensation, cap refill <2 seconds, pulses normal. Gait: Pain with weight bearing. Skin: No cellulitis or rash. Constitutional Vital Signs, click to edit/add: Last Vital Signs Temp 99.3 F 07/28/25 16:35 Pulse 96 H 07/28/25 16:35 Resp 18 07/28/25 16:35 BP 140/98 H 07/28/25 16:35 Pulse Ox 96 07/28/25 16:35 O2 Del Method Room Air 07/28/25 16:35 Course Vital Signs Vital signs: Vital Signs Temperature 99.3 F 07/28/25 16:35 Pulse Rate 96 H 07/28/25 16:35 Respiratory Rate 18 07/28/25 16:35 Blood Pressure 140/98 H 07/28/25 16:35 Pulse Oximetry 96 07/28/25 16:35 Oxygen Delivery Method Room Air 07/28/25 16:35 Temperature 99.3 F 07/28/25 16:35 Pulse Rate 96 H 07/28/25 16:35 Respiratory Rate 18 07/28/25 16:35 Blood Pressure 140/98 H 07/28/25 16:35 Pulse Oximetry 96 07/28/25 16:35 Oxygen Delivery Method Room Air 07/28/25 16:35 MDM - Extremity (Nontraumatic) MDM Narrative Medical decision making narrative: Diagnostics: * X-ray Right Foot: No acute fracture or dislocation * * Differential * Fracture (negative xray) * Plantar fascitis (no pain with toe flexion, no pain at tubrical of calcaneus, but still possible) * arch sprain (pt has diminished arches, recommend arch supports) * Achilles tendinitis ( no pain or crepitus in the acheilias) * gout ( no redness or warmth in the joint) * arthritis (no history, pain more in the metatarsals, no historry of arthritis, less likely) * Right foot pain (metatarsalgia / arch pain) ? no acute fracture Plan / Disposition: * Walking boot provided for support * Rest, ice, elevation as needed * OTC NSAIDs or acetaminophen for pain * Follow up with podiatry if pain persists or worsens Discharge Plan Discharge Chief Complaint: Extremity Problem, Nontraumatic Clinical Impression: Acute foot pain Patient Disposition: Home, Self-Care Time of Disposition Decision: 18:06 Condition: Good Mode of Transportation: Private Vehicle Prescriptions / Home Meds: No Action No Known Home Medications Print Language: Nepali Instructions: Foot Sprain (ED) Additional Instructions: Reason for Visit: Right foot pain What We Found: * Your foot X-ray did not show any fracture. * Pain is likely from irritation or inflammation of the soft tissues (muscle, tendon, or ligament) in your foot. What We Did Today: * Gave you a walking boot to reduce pain when standing or walking What to Do at Home: * Rest your foot as much as possible * Wear the walking boot when standing or walking for long periods * Ice the painful area 15?20 minutes at a time, 3?4 times per day * Take onje-smg-qkxwemw pain relievers (ibuprofen or acetaminophen) as needed * Avoid high-impact activities until pain improves Follow Up: * Follow up with a door puller or your primary care doctor if pain lasts more than 1?2 weeks, gets worse, or if you notice swelling/redness Return to the ER right away if: * You are unable to walk even with the boot * You notice severe swelling, redness, fever, or open wound * You develop numbness, tingling, or loss of blood flow to the foot Referrals: PALAK BRAY [Primary Care Provider, EXECUTIVE STAFF ASSISTANT] - 1 week Messi Vivar DPM [Physician, Podiatry] - 1 week
--- NOTE | 2025-07-28 17:30 | ED.EXTPRO1 ---
HPI - Extremity Problem General Chief complaint: Extremity Problem, Nontraumatic Stated complaint: HURT HER RIGHT FOOT Time Seen by Provider: 07/28/25 17:17 Source: patient Mode of arrival: walk-in History of Present Illness HPI Narrative: 30-year-old female presents with right foot pain that started without injury. Pain is located in the medial arch and oejng-qv-ebzlwy metatarsal region. Pain worsens with weight bearing. No redness, swelling, numbness, tingling, or systemic symptoms. No interventions tried at home. 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 Related Data Home Medications ?Medication ?Instructions ?Recorded ?Confirmed No Known Home Medications 07/28/25 07/28/25 Allergies Allergy/AdvReac Type Severity Reaction Status Date / Time amoxicillin (From Augmentin) Allergy Unknown Verified 11/12/23 13:21 clavulanic acid (From Allergy Unknown Verified 11/12/23 13:21 Augmentin) menthol (From Icy Hot) Allergy Unknown Verified 11/12/23 13:21 methyl salicylate (From Icy Allergy Unknown Verified 11/12/23 13:21 Hot) PFSH [facility] Social History Smoking status: Current every day smoker Little interest or pleasure in doing things: not at all Feeling down, depressed, or hopeless: not at all Exam Narrative Exam Narrative: General: Alert, oriented, nontoxic Right Foot: Tenderness over medial arch and 1st?2nd metatarsal region. No swelling, erythema, or warmth. No open wounds. no pain in the calf, knee or hip. Neurovascular: Intact sensation, cap refill <2 seconds, pulses normal. Gait: Pain with weight bearing. Skin: No cellulitis or rash. Constitutional Vital Signs, click to edit/add: Last Vital Signs Temp 99.3 F 07/28/25 16:35 Pulse 96 H 07/28/25 16:35 Resp 18 07/28/25 16:35 BP 140/98 H 07/28/25 16:35 Pulse Ox 96 07/28/25 16:35 O2 Del Method Room Air 07/28/25 16:35 Course Vital Signs Vital signs: Vital Signs Temperature 99.3 F 07/28/25 16:35 Pulse Rate 96 H 07/28/25 16:35 Respiratory Rate 18 07/28/25 16:35 Blood Pressure 140/98 H 07/28/25 16:35 Pulse Oximetry 96 07/28/25 16:35 Oxygen Delivery Method Room Air 07/28/25 16:35 Temperature 99.3 F 07/28/25 16:35 Pulse Rate 96 H 07/28/25 16:35 Respiratory Rate 18 07/28/25 16:35 Blood Pressure 140/98 H 07/28/25 16:35 Pulse Oximetry 96 07/28/25 16:35 Oxygen Delivery Method Room Air 07/28/25 16:35 MDM - Extremity (Nontraumatic) MDM Narrative Medical decision making narrative: Diagnostics: X-ray Right Foot: No acute fracture or dislocation Differential Fracture (negative xray) Plantar fascitis (no pain with toe flexion, no pain at tubrical of calcaneus, but still possible) arch sprain (pt has diminished arches, recommend arch supports) Achilles tendinitis ( no pain or crepitus in the acheilias) gout ( no redness or warmth in the joint) arthritis (no history, pain more in the metatarsals, no historry of arthritis, less likely) Right foot pain (metatarsalgia / arch pain) ? no acute fracture Plan / Disposition: Walking boot provided for support Rest, ice, elevation as needed OTC NSAIDs or acetaminophen for pain Follow up with podiatry if pain persists or worsens Discharge Plan Discharge Chief Complaint: Extremity Problem, Nontraumatic Clinical Impression: Acute foot pain Patient Disposition: Home, Self-Care Time of Disposition Decision: 18:06 Condition: Good Mode of Transportation: Private Vehicle Prescriptions / Home Meds: No Action No Known Home Medications Print Language: Senegalese Instructions: Foot Sprain (ED) Additional Instructions: Reason for Visit: Right foot pain What We Found: Your foot X-ray did not show any fracture. Pain is likely from irritation or inflammation of the soft tissues (muscle, tendon, or ligament) in your foot. What We Did Today: Gave you a walking boot to reduce pain when standing or walking What to Do at Home: Rest your foot as much as possible Wear the walking boot when standing or walking for long periods Ice the painful area 15?20 minutes at a time, 3?4 times per day Take cvux-tea-htwlxam pain relievers (ibuprofen or acetaminophen) as needed Avoid high-impact activities until pain improves Follow Up: Follow up with a wet plant operator or your primary care doctor if pain lasts more than 1?2 weeks, gets worse, or if you notice swelling/redness Return to the ER right away if: You are unable to walk even with the boot You notice severe swelling, redness, fever, or open wound You develop numbness, tingling, or loss of blood flow to the foot Referrals: PALAK BRAY [Primary Care Provider, PRIMARY TEACHING ASSISTANT] - 1 week Messi Vivar DPM [Physician, Podiatry] - 1 week
== END 2025-07-28 18:39 | disposition home or self-care (01) ==
PROVIDERS: Emergency Provider Emergency Medicine; PCP Nurse Practitioner
DX: M79.671 Pain in right foot (principal); F17.200 Nicotine dependence, unspecified, uncomplicated
CPT/HCPCS: 73630; 99283

== ENCOUNTER 2025-09-25 12:42 | Emergency (ER) | payer OTHER, SELFPAY ==
[2025-09-25 12:47] VITALS: BP 140/102; PULSE 84; TEMP 36.8; O2SAT 98; BMI 42.0
--- NOTE | 2025-09-25 12:59 | PC.NURSE ---
throat red with a little swelling to bilat sides of back of throat.
--- NOTE | 2025-09-25 13:02 | XR_ITS ---
[facility] [place] [id number] Patient Name: HEATH SMITH MRN: [id number] date: 1995 Sex: F Assigned Patient Location: ER Current Patient Location: ED.MAIN Accession/Order Number: [id number] Exam Date: 09/25/2025 13:15 Report Date: 09/25/2025 13:34 At the request of: FLYNN QUIGLEY MD Procedure: XR soft tissue neck XR soft tissue neck 09/25/2025 1:20 PM SIGNS AND SYMPTOMS: ^pain, feels lump in throat PROTOCOL: Frontal and lateral radiographs of the soft tissues of the neck COMPARISON: 01/25/2017 FINDINGS: The nasopharyngeal, oropharyngeal, hypopharyngeal, glottic, and visualized subglottic airway are within normal limits. No abnormal radiopaque foreign body. The bony structures are within normal limits. XR/XR soft tissue neck IMPRESSION: Normal soft tissues of the neck. Impression dictated by: Lior Kline M.D. 09/25/2025 1:34 PM Dictation Location: [place] [address] Electronically authenticated by: [id number] Y Date: 09/25/2025 13:34
--- NOTE | 2025-09-25 13:03 | ED.GENADUL1 ---
HPI HPI - General Adult General Chief complaint: Upper Respiratory Infection Stated complaint: sore throat Time Seen by Provider: 09/25/25 13:02 Source: patient Mode of arrival: walk-in History of Present Illness HPI narrative: 30-year-old female presents for sore throat. She feels like there is a lump stuck in her throat and she has had this for the past 2 days. No fever or known ill contacts. No injury. No ear pain or drainage. No cough or shortness of breath. Related Data Previous Rx's ?Medication ?Instructions ?Recorded esomeprazole magnesium 20 mg 20 mg PO DAILY #20 caps 09/25/25 capsule,delayed release (Nexium) ondansetron 4 mg disintegrating 4 mg PO Q6H PRN nausea and 09/25/25 tablet vomiting #20 tabs Allergies Allergy/AdvReac Type Severity Reaction Status Date / Time amoxicillin (From Augmentin) Allergy Unknown Verified 11/12/23 13:21 clavulanic acid (From Allergy Unknown Verified 11/12/23 13:21 Augmentin) menthol (From Icy Hot) Allergy Unknown Verified 11/12/23 13:21 methyl salicylate (From Icy Allergy Unknown Verified 11/12/23 13:21 Hot) Review of Systems ROS Narrative A ten point review of systems is negative except as noted above. PFSH PFSH Social History Smoking status: Current every day smoker Little interest or pleasure in doing things: not at all Feeling down, depressed, or hopeless: not at all Exam Narrative Exam Narrative: Nurses note and vital signs reviewed General:The patient appears well and in no apparent distress.Patient is resting comfortably on cart. Skin:Warm, dry, no pallor noted.There is no rash noted. Head:Normocephalic, atraumatic Eye: Normal conjunctiva, no drainage Ears, Nose, Mouth, and Throat: oral mucosa is moist. Nares patent. No pharyngeal erythema or exudate. Uvula midline. No peritonsillar swelling or uvular deviation. No retropharyngeal swelling. She is handling oral secretions well. No foreign body is seen. Cardiovascular:Regular Rate and Rhythm Respiratory:Patient is in no distress, no accessory muscle use, lungs are clear to auscultation, no wheezing, rales or rhonchi Back:non-tender GI: Soft and nontender Musculoskeletal: No joint swelling Neurological:A&O, normal speech Psychiatric:Cooperative Constitutional Vital Signs, click to edit/add: Last Vital Signs Temp 98.3 F 09/25/25 12:47 Pulse 84 09/25/25 12:47 Resp 16 09/25/25 12:47 BP 140/102 H 09/25/25 12:47 Pulse Ox 98 09/25/25 12:47 O2 Del Method Room Air 09/25/25 12:47 Course Vital Signs Vital signs: Vital Signs Temperature 98.3 F 09/25/25 12:47 Pulse Rate 84 09/25/25 12:47 Respiratory Rate 16 09/25/25 12:47 Blood Pressure 140/102 H 09/25/25 12:47 Pulse Oximetry 98 09/25/25 12:47 Oxygen Delivery Method Room Air 09/25/25 12:47 Temperature 98.3 F 09/25/25 12:47 Pulse Rate 84 09/25/25 12:47 Respiratory Rate 16 09/25/25 12:47 Blood Pressure 140/102 H 09/25/25 12:47 Pulse Oximetry 98 09/25/25 12:47 Oxygen Delivery Method Room Air 09/25/25 12:47 Medical Decision Making MDM Narrative Medical decision making narrative: Strep test is negative and soft tissue lateral neck x-ray shows no acute findings. The patient is concerned about GERD and she will be prescribed Nexium and Zofran and was given Decadron here, IM. Treatment diagnosis and follow-up were discussed with the patient. Differential Diagnosis Differential Diagnosis: Strep throat, viral pharyngitis, GERD Lab Data Lab results reviewed: Yes I reviewed the patient's lab results Labs: Lab Results 09/25/25 Range/Units 13:06 Streptococcus Screen Negative Imaging Data Soft tissue lateral neck x-ray: Radiologist's impression: ITS Impressions Soft Tissue Neck X-Ray 09/25/25 13:02 IMPRESSION: Normal soft tissues of the neck. Impression dictated by: Lior Kline M.D. 09/25/2025 1:34 PM Dictation Location: [place] [address] Electronically authenticated by: [id number] Y Date: 09/25/2025 13:34 Discharge Plan Discharge Chief Complaint: Upper Respiratory Infection Clinical Impression: Throat pain Patient Disposition: Home, Self-Care Time of Disposition Decision: 13:42 Condition: Good Mode of Transportation: Private Vehicle Prescriptions / Home Meds: New esomeprazole magnesium [Nexium] 20 mg capsule,delayed release(DR/EC) 20 mg PO DAILY Qty: 20 0RF ondansetron 4 mg tablet,disintegrating 4 mg PO Q6H PRN (Reason: nausea and vomiting) Qty: 20 0RF Print Language: Italian Instructions: GERD (Gastroesophageal Reflux Disease) (ED) Referrals: PALAK BRAY [Primary Care Provider, EXPERIENCE DESIGN DIRECTOR] - 1 week
--- OUTSIDE RECORDS SUMMARY | 2025-09-25 13:30 | XMS_ITS | Clinical Summary ---
Author Organization [facility] Address [address] [place] [address] Care Team Providers Care Natural Resource Technician Name Role Phone Whit Esquivel Unavailable Allergies Active AllergyReactionsCriticalityNoted DateCommentsAcetaminophenUnknown 05/19/2023 Other Reaction(s): Vomits after eating Amoxicillin-Pot Awpldhywczb44/13/7168Zfnzhccafen60/13/6153Wuztuny84/13/2023 Medications MedicationSigDispense QuantityRefillsLast FilledStart DateEnd DateStatus metFORMIN XR (Glucophage-XR) 500 MG 24 hr tablet Indications:Insulin resistanceTake 1 tablet (500 mg) by mouth in the evening. Take with meals. Do not crush, chew, or split. 30 tablet ctive etonogestrel-eluting (Nexplanon) 68 mg contraceptive implant as directed SubcutaneousActive phentermine (Adipex-P) 37.5 MG tablet Indications:Weight gainTake 1 tablet (37.5 mg) by mouth in the morning. Take before meals. 30 tablet 08/11/2023ctive norethindrone-ethinyl estradiol (11/21) 1-20 MG-MCG tablet Indications:Encounter for initial prescription of contraceptive pillsTake 1 tablet by mouth in the morning. 28 tablet 3Active FLUoxetine (PROzac) 20 MG capsule Indications:Anxiety, generalizedTAKE 1 CAPSULE BY MOUTH EVERY DAY AT THE SAME TIME 30 capsule ctive Active Problems ProblemNoted DateDiagnosed DateDichorionic diamniotic twin in first trimester ([facility])10/12/2017 Family History Medical HistoryRelationNameCommentsNo Known ProblemsBrotherBipolar disorder FatherDepressionFatherBipolar disorderMaternal GrandfatherDepressionMaternal GrandfatherMajor depressionBipolar disorderMaternal GrandmotherDepression Maternal Grandmothermajor depressionBipolar disorderMotherDepressionMother Bipolar disorderPaternal GrandfatherDepressionPaternal Grandfathermajor depressionBipolar disorderPaternal GrandmotherDepressionPaternal Grandmother major depressionBipolar disorderSisterDepressionSisterMajor depressionRelation NameStatusCommentsBrotherFatherAliveMaternal GrandfatherDeceasedMaternal GrandmotherAliveMotherAlivePaternal GrandfatherAlivePaternal GrandmotherDeceased Sister Social History Tobacco UseTypesPacks/DayYears UsedDateSmoking Tobacco: Never Assessed CommentsNoSex and Gender InformationValueDate RecordedSex Assigned at BirthNot on fileLegal RhlEtfblu44/15/2023 11:47 PM EDTGender IdentityNot on fileSexual OrientationNot on file Last Filed Vital Signs Vital SignReadingTime TakenCommentsBlood Vzmufuvd407/6610 2:05 PM EDT Pulse--Temperature--Respiratory Rate--Oxygen Saturation--Inhaled Oxygen Concentration--Ksidbr490 kg (305 lb)08/11/2023 2:05 PM DDAFtxgcq080.1 cm (5' 5 ) 08/11/2023 2:05 PM EDTBody Mass Index50.7508/11/2023 2:05 PM EDT Plan of Treatment Health MaintenanceDue DateLast DoneCommentsCOVID-19 Vaccine (2024- season) 2025Influenza Vaccine (#1)2025Pneumococcal Vaccine: Pediatrics (0 to 5 Years) and At-Risk Patients (6 to 64 Years)Aged OutNo longer eligible based on patient's age to complete this topic Insurance Care Teams Team MemberRelationshipSpecialtyStart DateEnd Date Whit Esquivel PA [address] [place] [address] [place] [address] PCP - [facility]02/01/24
--- OUTSIDE RECORDS SUMMARY | 2025-09-25 13:30 | XMS_ITS | Clinical Summary ---
Author Organization [facility] Address [id number] [address] [place] [address] Care Team Providers Care Press Service Reader Name Role Phone No Pcp, No Pcp Primary Care Provider Unavailabl e Allergies Active AllergyReactionsCriticalityNoted DateCommentsAmoxicillin-Pot Clavulanate Hives,PizyCfdofs70/11/8562RcgzmcpmqotDtntrsosPcturo97/11/2017MentholRashMedium 10/12/2017 Medications MedicationSigDispense QuantityRefillsLast FilledStart DateEnd DateStatus VITS62/FA/OM3/DHA/EPA ( GUMMY ORAL) Take 2 each by mouth daily.Active Active Problems ProblemNoted DateDiagnosed DateDichorionic diamniotic twin in first yntiyqxns51/11/2017 Social History Tobacco UseTypesPacks/DayYears UsedDateSmoking Tobacco: Every DayCigarettes Smokeless Tobacco: FormerChewAlcohol UseStandard Drinks/WeekCommentsNo0 (1 standard drink = 0.6 oz pure alcohol)ChildcareAnswerDate RecordedChildcare Huphcch4604/13/2019EmploymentAnswerDate HotgsdvcKnnfmynqruTuzfmwb77/12/2019Purpose - LifeAnswerDate RecordedPurpose and direction in euacYavlrel40/11/2021 CommentsNoSex and Gender InformationValueDate RecordedSex Assigned at BirthNot on fileLegal UgiFgqofy20/06/2015 12:04 PM EDTGender IdentityNot on fileSexual OrientationNot on file Last Filed Vital Signs Vital SignReadingTime TakenCommentsBlood Nyrrwczj124/7302 10:19 AM EST Egvdc9872 10:19 AM ESTTemperature--Respiratory Ltwz168812/13/2016 1:16 PM ESTOxygen Saturation--Inhaled Oxygen Concentration--Evknmj879.1 kg (258 lb 2.5 oz)12/18/2017 10:19 AM DEZNgauhc531.1 cm (5' 5 )12/18/2017 10:19 AM ESTBody Mass Index42.9612/18/2017 10:19 AM EST Plan of Treatment Health MaintenanceDue DateLast DoneCommentsDepression Wcmggmbea79/06/2009Tobacco Owzgtspzw75/06/2009dult BMI Iykuwtxwu97/06/2015DTaP,Tdap and Td Vaccines (1 - Tdap)2016Pap Smear2018Influenza Uyaxlwv0007/03/2025 Medical Devices Not on file Insurance Care Teams Team MemberRelationshipSpecialtyStart DateEnd Date [place], [place] [address] [facility]
--- OUTSIDE RECORDS SUMMARY | 2025-09-25 13:31 | XMS_ITS | CCD ---
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 CREATED AUTHOR 02/25/2023 [facility] DATE CREATED AUTHOR AUTHOR'S ORGANIZ ATION 08/27/2025 [facility] Patient Care team informatio n (unrecognized section and content) Personnel Name: Jj FOFANA DO, FAAFP Address: Address: [address] [place] [address] Personnel Name: Jj FOFANA DO, FAAFP Address: Address: [address] [place] [address] FOR RECORDS PERTAINING TO PATIENTS WHO ARE [...] BE BASED ON THE PRIMARY CLINICAL RECORDS. [employer] [facility] provides no warranty or guarantee of the accuracy or completeness of information in this document.
[2025-09-25] MEDS: DEXAMETHASONE SOD PHOS 10 MG/ML VIAL IM (13:51)
== END 2025-09-25 13:54 | disposition home or self-care (01) ==
PROVIDERS: Emergency Provider Emergency Medicine; PCP Nurse Practitioner
DX: R07.0 Pain in throat (principal); F17.200 Nicotine dependence, unspecified, uncomplicated
CPT/HCPCS: 70360; 87070; 87880; 96372; 99284; J1100